=== PATIENT | male | born 1945 | race Caucasian/White ===

== ENCOUNTER 2016-08-12 12:07 | Emergency (ER) | payer BC ==
[2016-08-12] MEDS ORDERED: HYDROCODONE/ACETAMINOPHEN 5/325MG TABLET ONE (13:37)
--- NOTE | 2016-08-12 14:07 | RAD ---
LEFT SHOULDER 3 VIEWS HISTORY: Status post fall with left shoulder pain. Internal rotation, Grashey, and transscapular views of the left shoulder. COMPARISON: None. ALIGNMENT: Grossly unremarkable. FRACTURE: No displaced acute fracture. ACROMIOCLAVICULAR JOINT: Minimal degeneration.. GLENOHUMERAL JOINT: Minute calcification along the glenoid rim which may be degenerative, otherwise unremarkable. VISIBLE LUNG [place]: Grossly clear. IMPRESSION: No gross malalignment or displaced acute fracture. Minimal degeneration of the acromioclavicular joint.
--- NOTE | 2016-08-12 14:07 | RAD ---
Exam: Two-view chest COMPARISON: 06/19/2016 and 06/19/2015 INDICATION: Fell off stepladder onto left side, left shoulder and posterior rib pain. FINDINGS: PA and lateral views of the chest were obtained. Cardiac silhouette is within normal limits. Lung volumes are low with mild left basilar atelectasis. There is no pneumothorax or definite pleural effusion. No displaced rib fracture is identified. IMPRESSION: Mild left basilar atelectasis. No displaced rib fracture is identified.
== END 2016-08-12 14:51 | disposition home or self-care (01) ==
LOC: ED 12:07
DX: T14.8 Other injury of unspecified body region (principal); M25.512 Pain in left shoulder; R07.89 Other chest pain; W11.XXXA Fall on and from ladder, initial encounter; Y92.9 Unspecified place or not applicable
CPT/HCPCS: 71020; 73030; 99283 ×2; A9270